=== PATIENT | female | born 1950 | race Caucasian/White ===

== ENCOUNTER 2023-12-17 15:52 | Emergency (ER) | payer MEDICARE ==
[~2023-12-17] VITALS: Ht 165.1 cm; Wt 71.8 kg
[~2023-12-17 15:52] MED LIST: ADVIL200 MG PO; ASPIRIN 32325 MG/TAB PO; CA; CLARITIN 1010 MG/TAB PO; MOBIC 7.5MG7.5 MG PO; NORCO 325 MG-51 TAB PO; NORCO 325 MG-7.1 TAB PO; PREVACID 15MG15 M1 PO; TYLENOL 325MG325 MG PO; ULTRAM 50MG TAB50 MG PO; VIT D3; ZOFRAN ODT4 MG PO
[2023-12-17 16:04] VITALS: BP 151/87; TEMP 97.8
[2023-12-17] MEDS ORDERED: LR 1,000 ML IV ONE (17:00)
[2023-12-17] MEDS ORDERED: Ondansetron 4 MG/2 ML VIAL IV ONE (17:00)
[2023-12-17 17:45] VITALS: PULSE 73
== END 2023-12-17 17:45 | disposition home or self-care (01) ==
LOC: COL.ER 15:52
DX: S73.005A Unspecified dislocation of left hip, initial encounter (principal); X58.XXXA Exposure to other specified factors, initial encounter